=== PATIENT | male | born 1970 | race Caucasian/White ===

== ENCOUNTER 2024-04-13 16:27 | Emergency (ER) | payer OTHER ==
[2024-04-13] MEDS ORDERED: Sodium Chloride 0.9% 10 ML Syringe FLUSH PRN (16:36)
[2024-04-13 16:54] LABS: BASOPHILS PERCENT AUTO 0.5 % (0.2-1.2); EOSINOPHILS ABSOLUTE AUTO 0.4 x10^3/uL (0.0-0.5); EOSINOPHILS PERCENT AUTO 4.1 % (0.0-4.0); HEMATOCRIT 42.2 % (40.0-52.0); HEMOGLOBIN 15.1 g/dL (14.0-18.0); IMMATURE GRAN ABSOLUTE AUTO 0.01 x10^3/uL (0.00-0.07); LYMPHOCYTES ABSOLUTE AUTO 2.4 x10^3/uL (1.0-4.8); LYMPHOCYTES PERCENT AUTO 27.8 % (25.0-50.0); MEAN CORPUSCULAR HEMOGLOBIN 31.9 pg (26.0-32.0); MEAN CORPUSCULAR HGB CONC 35.8 g/dL (32.0-36.0); MONOCYTES ABSOLUTE AUTO 1.1 x10^3/uL (0.0-0.8); MONOCYTES PERCENT AUTO 12.8 % (2.0-11.0); NEUTROPHILS ABSOLUTE AUTO 4.8 x10^3/uL (1.8-7.7); NEUTROPHILS PERCENT AUTO 54.7 % (50.0-80.0); PLATELET COUNT,PLT 225 x10^3/uL (130-400); RED BLOOD CELL COUNT 4.74 x10^6/uL (4.5-6.0); WHITE BLOOD CELL COUNT,WBC 8.7 x10^3/uL (4.0-10.0)
[2024-04-13 17:09] LABS: INR 2.2 (0.9-1.1); PROTHROMBIN TIME 22.4 SEC (9.6-12.0); PTT,PARTIAL THROMBOPLSTIN TIME 33.9 SEC (23.5-33.2)
[2024-04-13 17:13] LABS: LACTIC ACID 1.1 mmol/L (0.4-2.0)
[2024-04-13 17:18] LABS: A/G RATIO 1.38; ALANINE AMINOTRANSFERASE,ALT 40 U/L (16-63); ALKALINE PHOSPHATASE 100 U/L (46-116); ASPARTATE AMNIOTRANSFERASE,AST 18 U/L (15-37); BILIRUBIN TOTAL 0.5 mg/dL (0.2-1.0); BLOOD UREA NITROGEN,BUN 10 mg/dL (7-18); C-REACTIVE PROTEIN < 0.50 mg/dL (<=0.50); CALCIUM 8.7 mg/dL (8.5-10.1); CARBON DIOXIDE,CO2 23 mmol/L (21-32); CHLORIDE,CL 103 mmol/L (98-107); CREATININE 1.1 mg/dL (0.70-1.30); EST CRCL DRUG DOSING (CG) 91.33 mL/min; ESTIMATED GFR 81 mL/min (>=60); ETHANOL BLOOD MEDICAL < 3 mg/dL (0-3); GLUCOSE RANDOM 85 mg/dL (70-99); MAGNESIUM 2.2 mg/dL (1.8-2.4); PROTEIN TOTAL,TP 6.9 g/dL (6.4-8.2); SODIUM,NA 138 mmol/L (136-145)
[2024-04-13 18:15] LABS: AMPHETAMINES SCREEN, URINE NEGATIVE (NEGATIVE); APPEARANCE,URINE CLEAR (CLEAR); BARBITURATE SCREEN,URINE NEGATIVE (NEGATIVE); BENZODIAZEPINES SCREEN,URINE NEGATIVE (NEGATIVE); BILIRUBIN,URINE NEGATIVE (NEGATIVE); BUPRENORPHINE SCREEN,URINE NEGATIVE (NEGATIVE); COCAINE METABOLITES,URINE NEGATIVE (NEGATIVE); COLOR,URINE YELLOW (YELLOW); GLUCOSE,URINE >=1000 mg/dL (NEGATIVE); KETONES,URINE NEGATIVE (NEGATIVE); LEUKOCYTE ESTERASE,URINE NEGATIVE (NEGATIVE); METHADONE SCREEN, URINE NEGATIVE (NEGATIVE); METHAMPHETAMINE SCREEN, URINE NEGATIVE (NEGATIVE); NITRITE,URINE NEGATIVE (NEGATIVE); OCCULT BLOOD,URINE NEGATIVE (NEGATIVE); OXYCODONE SCREEN,URINE NEGATIVE (NEGATIVE); PCP SCREEN,URINE NEGATIVE (NEGATIVE); PH,URINE 5.5 (5.0-8.0); PROTEIN,URINE NEGATIVE (NEGATIVE); THC SCREEN,URINE 50 NG/ML NEGATIVE (NEGATIVE); UROBILINOGEN,URINE 0.2 EU/dL (0.2)
== END 2024-04-13 18:45 | disposition home or self-care (01) ==
LOC: VM.ED 16:27
DX: R41.0 Disorientation, unspecified (principal); R61 Generalized hyperhidrosis; I50.40 Unspecified combined systolic (congestive) and diastolic (congestive) heart failure; E66.9 Obesity, unspecified; Z86.73 Personal history of transient ischemic attack (TIA), and cerebral infarction without residual deficits; Z95.810 Presence of automatic (implantable) cardiac defibrillator; Z79.01 Long term (current) use of anticoagulants; Z79.899 Other long term (current) drug therapy; Z88.8 Allergy status to other drugs, medicaments and biological substances; V48.0XXA Car driver injured in noncollision transport accident in nontraffic accident, initial encounter; Y92.410 Unspecified street and highway as the place of occurrence of the external cause
CPT/HCPCS: 36415; 70450; 71045; 80053; 80305-QW; 80307; 81003; 83605; 83735; 83880; 84484; 85025; 85610; 85730; 86140; 93005; 93010; 99284; 99285